=== PATIENT | female | born 1990 | race Caucasian/White ===

== ENCOUNTER → 2024-01-12 | Outpatient (CLI) | payer MEDICAID, SELFPAY ==
--- NOTE | 2024-01-12 09:40 | XR_ITS ---
Examination: CT soft tissue neck, with intravenous contrast. 2-D coronal reconstructions. 2-D sagittal reconstructions. Date and time of exam :January 12, 2024 1040 hours INDICATIONS: Bilateral These beginning July 2023. CTDI: vol (mGy):13.2 DLP: (mGycm):356 Technique: 1.25 mm axial sections of the neck of the obtained. Coronal and sagittal reconstructions have been obtained. Intravenous contrast administered 60 cc Isovue-370. Low dose protocols were performed. One or more of the following dose reduction techniques were used; automated exposure control, adjustment of the mA and/or KV according to patient size, use of iterative reconstruction technique. Findings: Retention cyst left maxillary antrum Symmetrical nasopharynx oropharynx Bilateral triangle lymph nodes, the largest is on the left side 8 mm Significant bilateral thyromegaly left thyroid lobe extending substernal Normal epiglottis The larynx appears normal IMPRESSION: Nonspecific carotid triangle lymph nodes, the largest on the left side 8 mm Significant bilateral thyromegaly, consider correlation with oral I-123 thyroid uptake and scan
[2024-01-12 10:37] LABS: HCG Qualitative,Urine Negative
== END | disposition home or self-care (01) ==
LOC: CCTX 09:18 → COPL 11:25
PROVIDERS: Referring Provider Nurse Practitioner Family; Visit Provider Radiology Diagnostic Radiology
DX: R22.1 Localized swelling, mass and lump, neck (principal); Z32.00 Encounter for pregnancy test, result unknown
CPT/HCPCS: 70491; 81025; A4649; Q9967